=== PATIENT | female | born 1985 | race Caucasian/White ===

== ENCOUNTER 2016-11-22 13:42 | Emergency (ER) | payer BC ==
[2016-11-22] MEDS ORDERED: OPTIRAY 350 100 ML VIAL HMH IV ONE (13:43)
[2016-11-22] MEDS ORDERED: ONDANSETRON 4 MG VIAL ONE (15:04)
[2016-11-22] MEDS ORDERED: MORPHINE 4 MG/ML SYR ONE (15:04)
[2016-11-22] MEDS ORDERED: DILAUDID 1 MG/ML AMP ONE (15:57)
== END 2016-11-22 17:48 | disposition home or self-care (01) ==
LOC: ER 13:42
DX: K52.9 Noninfective gastroenteritis and colitis, unspecified (principal)
CPT/HCPCS: 36415; 74177; 80053; 81001; 83690; 84703; 85025; 87491; 87591; 87800; 96374; 96375